=== PATIENT | male | born 1985 | race Hispanic/Latino ===

== ENCOUNTER 2020-05-04 13:43 | Inpatient (IN) | payer SELFPAY ==
[~2020-05-04] VITALS: Ht 175.3 cm; Wt 86.2 kg
[2020-05-04] MEDS ORDERED: HYDROCODONE/ACETAMINOPHEN 10/325 MG TAB ONE (14:05)
[2020-05-04] MEDS ORDERED: TETANUS/DIPHTHERIA TOXOID [ADULT] 0.5 ML VIAL IM ONE (14:07)
[2020-05-04 14:23] LABS: BASOPHILS % (AUTO) 0.8 % (0.0-5.0); HEMATOCRIT 44.8 % (42-54); MEAN CORPUSCULAR HEMOGLOBIN 29.8 pg (27.0-33.0); MEAN CORPUSCULAR HGB CONC 33.7 g/dL (32.0-36.0); MEAN CORPUSCULAR VOLUME 88.5 fL (79-99); PLATELET COUNT (AUTO) 271 K/uL (130-400); RED BLOOD CELL COUNT(AUTO) 5.06 MIL/uL (4.50-6.20); RED CELL DISTRIBUTION WIDTH 12.9 % (11.0-15.5); WHITE BLOOD COUNT (AUTO) 9.8 K/uL (4.8-10.8)
[2020-05-04] MEDS ORDERED: CEFAZOLIN SODIUM 1 GM VIAL ONE (14:24)
[2020-05-04] MEDS ORDERED: SODIUM CHLORIDE 0.9% 100 ML IV ONE (14:25)
[2020-05-04 14:41] LABS: ALBUMIN 3.6 g/dL (3.5-5.0); BILIRUBIN,TOTAL 0.3 mg/dL (0.2-1.0); CREATININE 1.2 mg/dL (0.5-1.5); POTASSIUM 3.5 mmol/L (3.5-5.1); TOTAL PROTEIN, SERUM 7.2 g/dL (6.0-8.3)
[2020-05-04] MEDS ORDERED: ONDANSETRON HCL 4 MG/2 ML VIAL IV PRN (16:00)
[2020-05-04] MEDS ORDERED: LACTULOSE 20 GM/30 ML UDCUP PO PRN (16:00)
[2020-05-04] MEDS ORDERED: ACETAMINOPHEN 325 MG TAB PO PRN (16:00)
[2020-05-04] MEDS ORDERED: DOXYCYCLINE 100MG+NS 250ML 250 ML IV ONE (17:45)
[2020-05-04 18:00] VITALS: BP 124/64
[2020-05-04] MEDS ORDERED: KETOROLAC TROMETHAMINE 15MG/ML IV PRN (18:45)
[2020-05-04] MEDS: MORPHINE SULFATE 2 MG/ML 1ML SYG IVP PRN (19:25)
[2020-05-04] MEDS: FAMOTIDINE 20MG TAB 20 MG TAB PO SCH (19:53)
[2020-05-04 20:00] VITALS: BP 115/73
[2020-05-04 20:00] LABS: AMPHET/METH SCREEN,URINE NEGATIVE (NEGATIVE); BARBITURATE SCREEN, URINE NEGATIVE (NEGATIVE); BENZODIAZEPINES SCREEN,URINE NEGATIVE (NEGATIVE); CANNABINOID SCREEN,URINE POSITIVE (NEGATIVE); COCAINE SCREEN,URINE POSITIVE (NEGATIVE); OPIATE SCREEN,URINE NEGATIVE (NEGATIVE); PHENCYCLIDINE SCREEN,URINE NEGATIVE (NEGATIVE)
[2020-05-04] MEDS ORDERED: FAMOTIDINE 20MG TAB 20 MG TAB PO SCH (21:00)
[2020-05-04 23:30] VITALS: BP 112/68
[2020-05-05] MEDS: MORPHINE SULFATE 2 MG/ML 1ML SYG IVP PRN ×3 (03:47→16:51)
[2020-05-05 04:00] VITALS: BP 121/75
[2020-05-05 05:58] LABS: EOSINOPHILS % (AUTO) 4.1 % (0.0-8.0); HEMATOCRIT 45.5 % (42-54); MEAN CORPUSCULAR HEMOGLOBIN 29.7 pg (27.0-33.0); MEAN CORPUSCULAR HGB CONC 33.4 g/dL (32.0-36.0); MONOCYTES % (AUTO) 7.9 % (3.0-13.0); NEUTROPHILS % (AUTO) 63.6 % (40.0-77.0); PLATELET COUNT (AUTO) 268 K/uL (130-400); RED BLOOD CELL COUNT(AUTO) 5.11 MIL/uL (4.50-6.20); RED CELL DISTRIBUTION WIDTH 12.8 % (11.0-15.5); WHITE BLOOD COUNT (AUTO) 10.1 K/uL (4.8-10.8)
[2020-05-05 06:08] LABS: INR 0.84 (0.85-1.15); PROTHROMBIN TIME 9.1 SEC (9.6-11.6)
[2020-05-05 06:31] LABS: CREATININE 1.1 mg/dL (0.5-1.5); POTASSIUM 3.9 mmol/L (3.5-5.1)
[2020-05-05 08:00] VITALS: BP 106/68
--- NOTE | 2020-05-05 08:15 | NUR ---
ASSESSMENT NOTE PT IS IN BED [id number], CALM WATCHING TV, DRESSING IS DRY AND INTACT. WILL PAGE DR. WEISS REFERENCE TO LEFT MIDDLE FINGER, TRAUMATIC LACERATION.
[2020-05-05] MEDS: FAMOTIDINE 20MG TAB 20 MG TAB PO SCH ×2 (09:00→19:55)
[2020-05-05] MEDS ORDERED: CEFAZOLIN SODIUM 1 GM VIAL IVP SCH (10:15)
--- NOTE | 2020-05-05 12:02 | NUR ---
DCP CM met with pt discussed dc plans. Pt is independent prior to admission, lives at home with spouse and children. Denies any equipments/services. Feels safe to go back home, still drives and works, spouse able to assist with transportation and needs as necessary. DC plan to home once stable. CM to continue to follow up. Addendum: 05/05/20 at 1206 by STEPHY GÓMEZ LVN CM Amended: Links added.
[2020-05-05 12:37] VITALS: BP 113/80
[2020-05-05 17:27] VITALS: BP 113/59
[2020-05-05] MEDS: LACTATED RINGERS 1000ML 1,000 ML IV SCH (17:57)
[2020-05-05 19:55] VITALS: BP 136/77
[2020-05-05] MEDS: UNASYN 3GM+NS 100ML 100 ML IV SCH (19:55)
[2020-05-05] MEDS ORDERED: KETOROLAC TROMETHAMINE 30MG/ML ONE (20:14)
[2020-05-06] VITALS (28 sets, daily range): BP systolic 102–145; BP diastolic 56–86
[2020-05-06] MEDS: UNASYN 3GM+NS 100ML 100 ML IV SCH ×4 (01:28→18:11)
[2020-05-06] MEDS: MORPHINE SULFATE 2 MG/ML 1ML SYG IVP PRN ×2 (02:44→18:25)
--- NOTE | 2020-05-06 03:40 | NUR ---
ROUNDS PATIENT RESTING IN BED WITH OU CLOSED. EASILY AROUSED. NO COMPLAINTS OF PAIN VOICED. LEFT HAND ELEVATED. VITALS STABLE. AFEBRILE. RESP EVEN AND UNLABORED. NO SOB NOTED. ON ROOM AIR. TOLERATING LR AT 75ML/HR. NO ADVERSE REACTIONS NOTED FROM IV ABT. UP WITH MINIMAL ASSIST. NPO FOR SURGERY IN AM. CALL LIGHT WITHIN REACH. WILL CONTINUE TO BE OBSERVED. Addendum: 05/06/20 at 0405 by MIS ALVES RN RN Amended: Links added.
[2020-05-06] MEDS: LACTATED RINGERS 1000ML 1,000 ML IV SCH ×3 (05:47→20:25)
[2020-05-06 05:50] LABS: EOSINOPHILS % (AUTO) 5.2 % (0.0-8.0); HEMATOCRIT 45.4 % (42-54); LYMPHOCYTES % (AUTO) 27.8 % (21.0-51.0); MEAN CORPUSCULAR HEMOGLOBIN 29.6 pg (27.0-33.0); MEAN CORPUSCULAR HGB CONC 33.3 g/dL (32.0-36.0); MONOCYTES % (AUTO) 7.7 % (3.0-13.0); NEUTROPHILS % (AUTO) 57.7 % (40.0-77.0); PLATELET COUNT (AUTO) 242 K/uL (130-400); RED CELL DISTRIBUTION WIDTH 12.7 % (11.0-15.5); WHITE BLOOD COUNT (AUTO) 7.3 K/uL (4.8-10.8)
[2020-05-06 06:05] LABS: CREATININE 1.1 mg/dL (0.5-1.5); POTASSIUM 4.3 mmol/L (3.5-5.1)
[2020-05-06] MEDS: FAMOTIDINE 20MG TAB 20 MG TAB PO SCH ×2 (09:00→20:55)
--- NOTE | 2020-05-06 10:52 | NUR ---
SURGERY PT LEFT TO SURGERY VIA BED, PT AAOX4, VS STABLE
[2020-05-06] MEDS ORDERED: SUCCINYLCHOLINE CHLORIDE 20 MG/ML 10 ML VIAL ONE (11:00)
[2020-05-06] MEDS ORDERED: LIDOCAINE PF 2% 5ML ABBOJECT ONE (11:00)
[2020-05-06] MEDS ORDERED: MIDAZOLAM HCL 1 MG/ML 2ML VIAL ONE (11:01)
[2020-05-06] MEDS ORDERED: PROPOFOL 10 MG/ML 20ML VIAL IV ONE (11:01)
[2020-05-06] MEDS ORDERED: FENTANYL CITRATE PF 50 MCG/1 ML 2ML VIAL ONE (11:01)
[2020-05-06] MEDS ORDERED: ROCURONIUM 10MG/1ML SYR 10 MG/ML ML ONE (11:12)
[2020-05-06] MEDS ORDERED: BUPIVACAINE/PF 0.25% 30ML VIAL IJ ONE (11:16)
[2020-05-06] MEDS ORDERED: ONDANSETRON HCL 4 MG/2 ML VIAL ONE (11:20)
[2020-05-06] MEDS ORDERED: DEXAMETHASONE SOD PHOSPHATE 4 MG/ML 1ML VIAL ONE (11:20)
[2020-05-06] MEDS ORDERED: NEOMY SULF/POLYMYXIN B SULFATE 1 ML AMPUL IR ONE (11:22)
[2020-05-06] MEDS ORDERED: MEPERIDINE-PF 25 MG/ML SYG ONE ×2 (11:57→12:09)
--- NOTE | 2020-05-06 12:55 | NUR ---
patient return to room PATIENT BACK IN ROOM DRESSING INTACT O2 SATS 93-94 ON ROOM AIR , WILL CONTINUE TO MONITOR
--- NOTE | 2020-05-06 13:10 | NUR ---
POST OP X 15MIN X 2 PT IS SLEEPING, DRESSING IS DRY AND INTACT. PT HAD I & D DONE TODAY AND WILL GO BACK TO SURGERY TOMORROW, NPO AFTER MN
--- NOTE | 2020-05-06 13:25 | NUR ---
POST OP X 15MIN X 3 PT AT BEDSIDE, PT CONTINUES TO SLEEP VS ARE STABLE AND DRESSING DRY AND INTACT WILL CONTINUE TO MONITOR.
--- NOTE | 2020-05-06 13:40 | NUR ---
POST X 15MIN X 4 PT VOICES NO COMPLAINT OF PAIN, VS BP 11/69; HR 85, SPO2 96% CONTINUES TO BE AT BEDSIDE.
--- NOTE | 2020-05-06 14:05 | NUR ---
POSTOP X 30MIN X1 PT IS SLEEPING, NO SOB, VS STABLE, PT LEFT AND WILL BE BACK FOR DINNER.
--- NOTE | 2020-05-06 14:35 | NUR ---
POST OP 30 MIN X2 PT CONTINUES TO SLEEP VS, B/P 113/58; HR 65, SPO2 96%, DRESSING DRY AND INTACT WILL CONTINUE TO MONITOR.
--- NOTE | 2020-05-06 15:35 | NUR ---
POST OP 1HRX 1 PT AAOX4 IS IN BED ON HIS CELL PHONE, VS STABLE B/P 108/65; HR 66; SPO2 97%, DRESSING DRY AND INTACT, WILL CONTINUE TO MONITOR.
--- NOTE | 2020-05-06 23:30 | NUR ---
2300: Patient informed that surgery would be scheduled for Friday the . Patient got upset and stated he wanted to leave and come back Friday. Informed him that he would be lacking the IV antibiotic that he requires to prevent infection to the surgical site. Patient stated he wanted to leave, [place] and has been in the hospital since . 23:08: Shaina HUSSEIN paged via answering service. 2313: Shaina HUSSEIN returned call informed of above, he stated patient would have to leave against medical advice, because still has not released him to go. He stated he would go over patient's chart and come down here to talk to him. 2325: Patient stated he had already spoken to over texting. He told him that he would have to sign a paper to go against medical advice and he would have to come back to ER on Friday. Shaina HUSSEIN made aware he was here to see patient. 2330: Patient signed paper at 2327, and took off down stairs, after I discontinued saline lock with catheter intact.
[2020-05-09 03:09] LABS: HEPATITIS A ANTIBODY IGM Negative (Negative); HEPATITIS B CORE IGM Negative (Negative); HEPATITIS Bs ANTIGEN SCREEN P Negative (Negative)
== END 2020-05-06 23:30 | disposition left against medical advice (07) | DRG 513 ==
LOC: EDH 13:43 → EDHIP 13:44 → 3BH 16:49
PROVIDERS: ADMIT Family Medicine; ATTEND Family Medicine
PROC: 0LB80ZZ Excision of Left Hand Tendon, Open Approach (ICD-10-PCS; principal; 2020-05-06 11:22)
DX: S62.603A Fracture of unspecified phalanx of left middle finger, initial encounter for closed fracture (principal); L02.512 Cutaneous abscess of left hand; S61.213A Laceration without foreign body of left middle finger without damage to nail, initial encounter; F12.10 Cannabis abuse, uncomplicated; F14.10 Cocaine abuse, uncomplicated; X58.XXXA Exposure to other specified factors, initial encounter; Y93.89 Activity, other specified; Y92.89 Other specified places as the place of occurrence of the external cause; Y99.8 Other external cause status
CPT/HCPCS: 36415; 73130; 80048; 80053; 80074; 80305; 85025; 85610; 86701; 87070; 87076; 87205; 87390; 90714; 99291; A4606; G0378; J0295; J0330; J0690; J1100; J1885; J2001; J2175; J2250; J2405; J2704; J3010; J3490; J7120

== ENCOUNTER 2020-05-08 12:29 | Observation (INO) | payer SELFPAY ==
[2020-05-08] VITALS (17 sets, daily range): BP systolic 105–130; BP diastolic 63–88
[~2020-05-08] VITALS: Ht 175.3 cm; Wt 93.0 kg
[2020-05-08] MEDS ORDERED: SODIUM CHLORIDE 0.9% 1000ML 1,000 ML IV ONE (14:17)
--- NOTE | 2020-05-08 15:50 | NUR ---
preop pt laying comfortably in stretcher. pt has dressing to left middle finger. pt oriented to room and call light. will continue to monitor pt
[2020-05-08] MEDS ORDERED: LACTATED RINGERS 1000ML 1,000 ML IV ONE (15:55)
[2020-05-08] MEDS: CEFAZOLIN SODIUM 1 GM VIAL ONE ×2 (16:26→16:42)
[2020-05-08] MEDS ORDERED: NAPR220C15 PO (16:31)
[2020-05-08] MEDS ORDERED: MIDAZOLAM HCL 1 MG/ML 2ML VIAL ONE (16:34)
[2020-05-08] MEDS ORDERED: PROPOFOL 10 MG/ML 20ML VIAL IV ONE (16:34)
[2020-05-08] MEDS ORDERED: LIDOCAINE PF 2% 5ML ABBOJECT ONE (16:34)
[2020-05-08] MEDS ORDERED: FENTANYL CITRATE PF 50 MCG/1 ML 2ML VIAL ONE (16:35)
[2020-05-08] MEDS ORDERED: CEFAZOLIN SODIUM 1 GM VIAL ONE (16:41)
[2020-05-08] MEDS ORDERED: CEFAZOLIN SODIUM 1 GM VIAL IVP ONE (16:42)
[2020-05-08] MEDS ORDERED: ONDANSETRON HCL 4 MG/2 ML VIAL ONE (16:55)
[2020-05-08] MEDS ORDERED: MEPERIDINE-PF 25 MG/ML SYG ONE (17:18)
--- NOTE | 2020-05-08 18:47 | NUR ---
Pt being discharged tonight after post-op period is complete. Handwritten RX for Augmentin and Tylenol #3 given to pt and pt's girlfriend in order to have it filled before pharmacy closes.
[2020-05-08] MEDS ORDERED: AMOX-429 PO (19:15)
[2020-05-08] MEDS ORDERED: ACET1TAB25 PO (19:29)
--- NOTE | 2020-05-08 19:39 | NUR ---
discharge instructions given to patient alone. patient alert and oriented times 3. he verbalizes understanding and has the original medication prescription with him. I removed his iv on the right antecubital. catheter tip intact. instructed patient that in case of chest pain, shortness of breath, fever, or other symptoms, to come to our ER. no issues
== END 2020-05-08 20:00 | disposition home or self-care (01) ==
LOC: EDH 12:29 → EDHIP 12:30 → 3CH 18:16
PROVIDERS: ADMIT Surgery Plastic and Reconstructive Surgery; ATTEND Surgery Plastic and Reconstructive Surgery
DX: L02.512 Cutaneous abscess of left hand (principal); S66.313A Strain of extensor muscle, fascia and tendon of left middle finger at wrist and hand level, initial encounter; F17.200 Nicotine dependence, unspecified, uncomplicated; X58.XXXA Exposure to other specified factors, initial encounter; Y93.89 Activity, other specified; Y92.89 Other specified places as the place of occurrence of the external cause
CPT/HCPCS: 11042; 96360; 96361; 99284; A4215; A4221; A4222; A4223; A4663; A6445; A6446; G0378 ×5; J0690 ×3; J2001; J2175; J2250; J2405; J2704; J3010; J7030 ×2; J7120